=== PATIENT | male | born 1975 | race Caucasian/White ===

== ENCOUNTER 2016-07-08 22:40 | Emergency (ER) | payer OTHER ==
[~2016-07-08 22:40] MED LIST: METFORMIN HCL500 M1 PO; NO MEDICATIONS
== END 2016-07-09 01:04 | disposition home or self-care (01) ==
LOC: SED 22:40
DX: R04.0 Epistaxis (principal); F17.200 Nicotine dependence, unspecified, uncomplicated
CPT/HCPCS: 99283